=== PATIENT | female | born 1950 | race American Indian/Alaskan Native ===

== ENCOUNTER 2017-05-30 09:21 | Outpatient (CLI) | payer MEDICARE ==
[2017-05-30 10:37] LABS: Bilirubin,Urine NEG (Negative); Blood,Urine NEG (Negative); Color,Urine Yellow (Yellow); Nitrite,Urine NEG (Negative); Urobilinogen,Urine < 2.0 mg/dL (<2.0)
[2017-05-30 10:41] LABS: Basophils % (Auto) 0.7 % (0.0-1.8); Eosinophils # (Auto) 0.1 K/mm3 (0.0-0.4); Eosinophils % (Auto) 1.4 % (0.0-4.3); Hematocrit 36.7 % (30.3-42.9); Hemoglobin 12.4 gm/dl (10.1-14.3); Lymphocytes # (Auto) 2.4 K/mm3 (1.2-5.4); Lymphocytes % (Auto) 42.3 % (13.4-35.0); Mean Corpuscular HGB Conc 34 % (30-34); Mean Corpuscular Hemoglobin 31 pg (28-32); Mean Corpuscular Volume 93 fl (79-97); Monocytes # (Auto) 0.7 K/mm3 (0.0-0.8); Monocytes % (Auto) 11.7 % (0.0-7.3); Platelet Count 322 K/mm3 (140-440); Red Blood Count 3.96 M/mm3 (3.65-5.03); Red Cell Distribution Width 14.4 % (13.2-15.2)
[2017-05-30 10:56] LABS: BUN/Creatinine Ratio 20; Blood Urea Nitrogen 22 mg/dL (7-17); Calcium 9.1 mg/dL (8.4-10.2); Hemolysis Index 3
[2017-05-30 11:02] LABS: Creatinine,Urine 130.5 mg/dL (0.1-20.0); Protein/Creatinine Ratio,Urine 0.31
--- NOTE | 2017-05-31 12:24 | Vascular Lab Report ---
RENAL ARTERY DUPLEX EXAM: REASON FOR EXAM: Renal artery stenosis. NOTE: Visualization is technically limited because patient had not been n.p.o.. COMMENTS ON THE AORTA: The aorta is patent. Mildly elevated flow velocities are observed. No aneurysmal dilatation is noted. Mild atherosclerotic change is identified. The celiac artery is not seen. The superior mesenteric artery is patent with normal flow velocity. COMMENTS ON THE RIGHT KIDNEY: The kidney measures 8.5 centimeters in greatest dimension. These findings are consistent with mild renal atrophy. The renal artery is patent. Maximum systolic velocity is 154 cm/sec. This finding is consistent with less than 60% diameter reduction. Renal aortic index is 1.81 but this is difficult to interpret in the face of mildly elevated aortic velocities. This finding is consistent with less than 60% diameter reduction. Overall findings are consistent with less than 60% diameter reduction in the renal artery. COMMENTS ON THE LEFT KIDNEY: The kidney measures 9.4 centimeters in greatest dimension. No obvious parenchymal abnormalities are noted. The renal artery is patent. Maximum systolic velocity is 130 cm/sec. This finding is consistent with less than 60% diameter reduction. Renal aortic index is 1.53 but is dilated it is difficult to interpret in the face of mild be elevated aortic velocities. This finding is consistent with less than 60% diameter reduction. Overall findings are consistent with less than 60% diameter reduction in the renal artery. IMPRESSION: RIGHT KIDNEY: Less than 60% diameter reduction in the renal artery. The right kidney appears to be mildly atrophied. LEFT KIDNEY: Less than 60% diameter reduction in the renal artery.
== END 2017-05-30 09:22 | disposition home or self-care (01) ==
LOC: VAS 09:21
PROVIDERS: ATTEND Internal Medicine Nephrology
DX: I12.9 Hypertensive chronic kidney disease with stage 1 through stage 4 chronic kidney disease, or unspecified chronic kidney disease (principal); N18.3 Chronic kidney disease, stage 3 (moderate); E11.22 Type 2 diabetes mellitus with diabetic chronic kidney disease; M15.9 Polyosteoarthritis, unspecified; N25.81 Secondary hyperparathyroidism of renal origin; E78.5 Hyperlipidemia, unspecified; R80.0 Isolated proteinuria
CPT/HCPCS: 36415; 80048; 81001; 82088; 82306; 82570; 83970; 84100; 84156; 84165; 84166; 84244; 85025; 86038; 86160; 93975